=== PATIENT | female | born 1975 | race Caucasian/White ===

== ENCOUNTER → 2016-11-22 | Outpatient (CLI) | payer MEDICARE ==
[~2016-11-22] MED LIST: MOTRIN-DPS800 MG PO; NIPPLECREAM TP; PRENATAL VIT1 TAB PO; VITAMIN D33000 UNIT PO
== END | disposition home or self-care (01) ==
LOC: RAD.S 08:51
DX: G35 Multiple sclerosis (principal); R20.0 Anesthesia of skin; M62.81 Muscle weakness (generalized); M47.892 Other spondylosis, cervical region